=== PATIENT | female | born 1950 ===

== ENCOUNTER 2018-05-02 22:35 | Observation (INO) | payer MEDICARE ==
[2018-05-02] MEDS ORDERED: Sodium Chloride 0.9% 1,000 ML IV STA (23:08)
--- NOTE | 2018-05-02 23:11 | ED PDOC ---
HPI: Chest Pain Time Seen by Provider: 05/02/18 22:53 Chief Complaint (Nursing): Chest Pain Chief Complaint (Provider): Chest pain History Per: Patient History/Exam Limitations: no limitations Onset/Duration Of Symptoms: Days (today) Current Symptoms Are (Timing): Gone Now Additional Complaint(s): Pt. with chest pain and palpitations. Got light-headed at the same time. No numbness, tingles, weakness, headaches. No fever. No calf pain, long distance travel. No hormone tx. Took her DM meds and htn meds and felt better. No pain currently. Past Medical History Reviewed: Nursing Documentation, Vital Signs Vital Signs: Last Vital Signs Temp 98.5 F 05/02/18 22:45 Pulse 104 H 05/02/18 22:45 Resp 16 05/02/18 22:45 BP 180/91 H 05/02/18 22:45 Pulse Ox 98 05/02/18 22:45 - Medical History PMH: Diabetes, HTN, Hypercholesterolemia - Surgical History Surgical History: No Surg Hx - Family History Family History: States: Unknown Family Hx - Living Arrangements Living Arrangements: With Family - Allergies Allergies/Adverse Reactions: Allergies Allergy/AdvReac Type Severity Reaction Status Date / Time No Known Allergies Allergy Verified 05/02/18 22:47 Review of Systems ROS Statement: Except As Marked, All Systems Reviewed And Found Negative Cardiovascular: Positive for: Chest Pain, Light Headedness Neurological: Positive for: Dizziness Physical Exam - Reviewed Nursing Documentation Reviewed: Yes Vital Signs Reviewed: Yes - Physical Exam Appears: Positive for: Non-toxic, No Acute Distress Head Exam: Positive for: ATRAUMATIC, NORMAL INSPECTION, NORMOCEPHALIC Skin: Positive for: Normal Color, Warm, DRY Eye Exam: Positive for: EOMI, Normal appearance, PERRL ENT: Positive for: Normal ENT Inspection Neck: Positive for: Normal, Painless ROM Cardiovascular/Chest: Positive for: Regular Rate, Rhythm. Negative for: Chest Non Tender, Edema Respiratory: Positive for: CNT, Normal Breath Sounds Gastrointestinal/Abdominal: Positive for: Normal Exam, Soft. Negative for: Tenderness Back: Positive for: Normal Inspection. Negative for: L CVA Tenderness, R CVA Tenderness Extremity: Positive for: Normal ROM. Negative for: Tenderness Neurologic/Psych: Positive for: Alert, animal feeder II-XII, Oriented. Negative for: Motor/Sensory Deficits, Aphasia, Facial Droop - ECG ECG: Positive for: Interpreted By Me, Viewed By Me ECG Rhythm: Positive for: Normal QRS, Normal ST Segment, Sinus Rhythm O2 Sat by Pulse Oximetry: 98 Pulse Ox Interpretation: Normal - Progress ED Course And Treament: 2311: Stable. Spoke with Dr. Celaya. Will admit. Pain free. Disposition - Clinical Impression Clinical Impression: Chest pain - Patient ED Disposition Is Patient to be Admitted: Yes Counseled Patient/Family Regarding: Studies Performed, Diagnosis - Disposition Disposition Time: 23:12 Condition: FAIR - Pt Status Changed To: Hospital Disposition Of: Observation - POA Present On Arrival: None
[2018-05-02 23:23] LABS: BASO # 0.1 K/uL (0.0-0.2); EOS # 0.2 K/uL (0.0-0.7); EOS % 2.7 % (0.0-4.0); HEMOGLOBIN 13.4 g/dL (12.0-16.0); LYMPH # 2.9 K/uL (1.0-4.3); LYMPH % 36.7 % (20.0-40.0); MEAN CELL VOLUME 87.8 fl (81.0-99.0); MEAN CORPUSCULAR HEMOGLOBIN 30.1 pg (27.0-31.0); MEAN CORPUSCULAR HGB CONC 34.2 g/dL (33.0-37.0); MEAN PLATELET VOLUME 7.6 fl (7.2-11.7); MONO # 0.5 K/uL (0.0-0.8); NEUT # 4.1 K/uL (1.8-7.0); NEUT % 52.6 % (50.0-75.0); RBC 4.47 Mil/uL (3.80-5.20); RED CELL DISTRIBUTION WIDTH 13.7 % (11.5-14.5); WHITE BLOOD COUNT 7.8 K/uL (4.8-10.8)
[2018-05-02 23:30] LABS: PROTHROMBIN TIME 11.2 Seconds (9.8-13.1)
[2018-05-02 23:32] LABS: PARTIAL THROMBOPLASTIN TIME 33.1 Seconds (25.6-37.1)
[2018-05-02 23:33] LABS: ALB/GLOB RATIO 1.1 (1.0-2.1); ALBUMIN 4.3 g/dL (3.5-5.0); ALT/SGPT 23 U/L (9-52); AST/SGOT 23 U/L (14-36); BLOOD UREA NITROGEN 21 mg/dl (7-17); CALCIUM 9.6 mg/dL (8.4-10.2); GFR NON-AFRICAN AMERICAN > 60
--- NOTE | 2018-05-03 06:53 | CP.PCM.HP ---
<Mar Harris - Last Filed: 05/03/18 08:27> History of Present Illness - History of Present Illness History of Present Illness: HPI: 67 YO Female with PMHx of Diabetes, HTN, Hypercholesterolemia, colon CA presented to [facility] ED for chest pain. Per patient, chest pain is pressure like in nature, located in the mediastinum, no radiation of the pain, no exacerbating factors or alleviating factors. Chest pain is associated with palpitations, and fatigue feeling. Pain has occurred in the past but usually happens at night. Not associated with activity, able to walk 6 blocks without discomfort. Pain lasted from 15-20 mins and then resolved. PMHx: Diabetes, HTN, Hypercholesterolemia, colon CA (2013) SurgHx: cholesectomy, colon resection (2012), colonoscopy (2 yrs ago normal) FHx: DM, colon CA and breast CA SHx: Denies ETOH, smoking and illicit drug use, lives with family Allergies: NKDA Present on Admission - Present on Admission Any Indicators Present on Admission: No Review of Systems - Constitutional Constitutional: absent: Chills, Fever - Cardiovascular Cardiovascular: absent: Chest Pain Past Patient History - Past Medical History & Family History Past Medical History?: Yes - Past Social History Smoking Status: Never Smoked - CARDIAC Hx Cardiac Disorders: Yes Hx Hypercholesterolemia: Yes Hx Hypertension: Yes - PULMONARY Hx Respiratory Disorders: No - NEUROLOGICAL Hx Neurological Disorder: No - HEENT Hx HEENT Problems: No - RENAL Hx Chronic Kidney Disease: No - ENDOCRINE/METABOLIC Hx Endocrine Disorders: Yes Hx Diabetes Mellitus Type 2: Yes - HEMATOLOGICAL/ONCOLOGICAL Hx Blood Disorders: No - INTEGUMENTARY Hx Dermatological Problems: No - MUSCULOSKELETAL/RHEUMATOLOGICAL Hx Musculoskeletal Disorders: No - GASTROINTESTINAL Hx Gastrointestinal Disorders: No - GENITOURINARY/GYNECOLOGICAL Hx Genitourinary Disorders: No - PSYCHIATRIC Hx Psychophysiologic Disorder: No Hx Substance Use: No - SURGICAL HISTORY Hx Surgeries: No - ANESTHESIA Hx Anesthesia: No Meds Allergies/Adverse Reactions: Allergies Allergy/AdvReac Type Severity Reaction Status Date / Time No Known Allergies Allergy Verified 05/02/18 22:47 Physical Exam - Constitutional Appears: No Acute Distress, Younger Than Stated Age - Head Exam Head Exam: NORMAL INSPECTION - Eye Exam Eye Exam: Normal appearance - ENT Exam ENT Exam: Mucous Membranes Moist - Respiratory Exam Respiratory Exam: Clear to Auscultation Bilateral, NORMAL BREATHING PATTERN. absent: Wheezes - Cardiovascular Exam Cardiovascular Exam: REGULAR RHYTHM, +S1, +S2 - GI/Abdominal Exam GI & Abdominal Exam: Normal Bowel Sounds, Soft. absent: Tenderness Additional comments: old ex lap scar, well healed - Extremities Exam Extremities exam: Positive for: normal inspection. Negative for: calf tende rness, pedal edema - Neurological Exam Neurological exam: Alert Results - Vital Signs Recent Vital Signs: Last Vital Signs Temp 98 F 05/03/18 03:30 Pulse 84 05/03/18 03:30 Resp 19 05/03/18 03:30 BP 154/81 H 05/03/18 03:30 Pulse Ox 97 05/03/18 03:30 - Labs Result Diagrams: 05/02/18 23:14 05/02/18 23:14 Labs: Laboratory Results - last 24 hr 05/02/18 05/02/18 05/02/18 23:14 23:14 23:14 WBC 7.8 RBC 4.47 Hgb 13.4 Hct 39.3 MCV 87.8 MCH 30.1 MCHC 34.2 RDW 13.7 Plt Count 262 MPV 7.6 Neut % (Auto) 52.6 Lymph % (Auto) 36.7 Yell % (Auto) 7.0 Eos % (Auto) 2.7 Baso % (Auto) 1.0 Neut # (Auto) 4.1 Lymph # (Auto) 2.9 Yell # (Auto) 0.5 Eos # (Auto) 0.2 Baso # (Auto) 0.1 PT 11.2 INR 1.0 APTT 33.1 Sodium 137 Potassium 4.1 Chloride 97 L Carbon Dioxide 27 Anion Gap 17 BUN 21 H Creatinine 0.9 Est GFR ( Amer) > 60 Est GFR (Non-Af Amer) > 60 POC Glucose (mg/dL) Random Glucose 284 H Calcium 9.6 Total Bilirubin 0.2 AST 23 ALT 23 Alkaline Phosphatase 87 Troponin I < 0.0120 Total Protein 8.1 Albumin 4.3 Globulin 3.8 Albumin/Globulin Ratio 1.1 05/03/18 05:33 WBC RBC Hgb Hct MCV MCH MCHC RDW Plt Count MPV Neut % (Auto) Lymph % (Auto) Yell % (Auto) Eos % (Auto) Baso % (Auto) Neut # (Auto) Lymph # (Auto) Yell # (Auto) Eos # (Auto) Baso # (Auto) PT INR APTT Sodium Potassium Chloride Carbon Dioxide Anion Gap BUN Creatinine Est GFR ( Amer) Est GFR (Non-Af Amer) POC Glucose (mg/dL) 125 H Random Glucose Calcium Total Bilirubin AST ALT Alkaline Phosphatase Troponin I Total Protein Albumin Globulin Albumin/Globulin Ratio Assessment & Plan (1) Hypertension Status: Chronic (2) Diabetes Status: Chronic (3) Chest pain Status: Acute - Assessment and Plan (Free Text) Assessment: Assessment/Plan: 67 YO Female with PMHx of Diabetes, HTN, Hypercholesterolemia, and colon CA (2012) is admitted for chest pain. Chest pain -atypical -EKG no acute ST or T wave changed noted -trop x 1 neg -cardiology consulted, follow up recs -echo pending HTN/NIDDM -chronic, controlled -c/w home meds Colon CA -s/p resection -remission Will d/c patient home if asymptomatic, neg trops and cleared by cardiology Plan as ordered <Gualberto Celaya - Last Filed: 05/04/18 11:49> Results - Vital Signs Recent Vital Signs: Last Vital Signs Temp 97.8 F 05/03/18 16:12 Pulse 77 05/03/18 16:12 Resp 17 05/03/18 16:12 BP 169/82 H 05/03/18 17:02 Pulse Ox 96 05/03/18 16:12 - Labs Result Diagrams: 05/03/18 08:08 05/03/18 08:08 Labs: Laboratory Results - last 24 hr 05/03/18 05/03/18 05/03/18 08:13 16:12 16:52 POC Glucose (mg/dL) 101 Troponin I 0.0130 25-OH Vitamin D Total < 12.8 L Assessment & Plan - Assessment and Plan (Free Text) Assessment: Patient was personally seen and examined by me in rounds with residents. Available labs and diagnostic data reviewed. Case, Patient's condition and management plan discussed with residents in rounds. Agree with resident's progress note. Plan: As ordered.
[2018-05-03] MEDS: Insulin Lispro (humaLOG) 100 Units/ml Inj SC SCH ×3 (06:58→17:03)
[2018-05-03 07:58] VITALS: PULSE 77
[2018-05-03 08:32] LABS: HEMOGLOBIN 12.3 g/dL (12.0-16.0); MEAN CELL VOLUME 90.9 fl (81.0-99.0); MEAN CORPUSCULAR HEMOGLOBIN 29.8 pg (27.0-31.0); MEAN CORPUSCULAR HGB CONC 32.8 g/dL (33.0-37.0); RBC 4.11 Mil/uL (3.80-5.20); RED CELL DISTRIBUTION WIDTH 13.6 % (11.5-14.5); WHITE BLOOD COUNT 8.1 K/uL (4.8-10.8)
[2018-05-03 08:41] LABS: BLOOD UREA NITROGEN 23 mg/dl (7-17); CALCIUM 9.3 mg/dL (8.4-10.2); GFR NON-AFRICAN AMERICAN > 60; HDL CHOLESTEROL 48 MG/DL (30-70)
--- NOTE | 2018-05-03 08:42 | RAD ---
Date of service: 05/02/2018 HISTORY: chest pain COMPARISON: No prior. FINDINGS: LUNGS: No active pulmonary disease. PLEURA: No significant pleural effusion identified, no pneumothorax apparent. CARDIOVASCULAR: No aortic atherosclerotic calcification present. Normal cardiac size. Cardiomegaly OSSEOUS STRUCTURES: No significant abnormalities. VISUALIZED UPPER ABDOMEN: Normal. OTHER FINDINGS: None. IMPRESSION: No acute pulmonary pathology appreciated. Cardiomegaly
[2018-05-03 08:52] LABS: LDL CHOLESTEROL 89 mg/dL (0-129)
[2018-05-03] MEDS ORDERED: Enoxaparin 40 mg Syringe SC SCH (09:00)
[2018-05-03] MEDS ORDERED: HCTZ/Losartan 12.5/50 Tab PO SCH (09:00)
--- NOTE | 2018-05-03 11:10 | CARD ---
APPROVED REPORT Date of service: 05/02/2018 EKG Measurement Heart [id number] PA [id number] <Conclusion> Sinus tachycardia Otherwise normal ECG
--- NOTE | 2018-05-03 12:13 | CARD ---
APPROVED REPORT Date of service: 05/03/2018 EXAM: Two-dimensional and M-mode echocardiogram with Doppler and color Doppler. Other Information Quality : GoodRhythm : NSR INDICATION Chest Pain 2D DIMENSIONS IVSd1.26 (0.7-1.1cm)LVDd4.20 (3.9-5.9cm) LVOT Diameter1.67 (1.8-2.4cm)PWd1.14 (0.7-1.1cm) IVSs1.34 (0.8-1.2cm)LVDs2.45 (2.5-4.0cm) FS (%) 41.7 %PWs1.41 (0.8-1.2cm) M-Mode DIMENSIONS Left Atrium (MM)3.75 (2.5-4.0cm)IVSd1.38 (0.7-1.1cm) Aortic Root2.92 (2.2-3.7cm)LVDd4.52 (4.0-5.6cm) Aortic Cusp Exc.1.88 (1.5-2.0cm)PWd1.19 (0.7-1.1cm) IVSs1.93 cmFS (%) 60 % LVDs1.82 (2.0-3.8cm)PWs1.88 cm Aortic Valve AoV Peak Cbcwjqix786.6cm/sAoV VTI34.8cmAO Peak GR.12mmHg LVOT Peak Bvoddzwv221.3cm/sLVOT VTI29.06cmAO Mean GR.7mmHg PIA (VMAX)0.48dt2HHE (VTI)0.99cm2 Mitral Valve MV E Yzxfwkas07.4cm/sMV DECEL [id number] A Pnjxtxxs97.8cm/s MV WRV12fpA/A ratio0.8MVA (PHT)2.60cm2 TDI Lateral E' Peak V9.53cm/sMedial E' Peak V5.62cm/sE/Lateral E'8.6 E/Medial E'14.7 Tricuspid Valve TR Peak Rxlfvxws572ke/sRAP ODTGPYBX65fzWlDP Peak Gr.21mmHg HEVQ18qxVz LEFT VENTRICLE The left ventricle is normal size. There is borderline to mild concentric left ventricular hypertrophy. The left ventricular systolic function is normal. The estimated ejection fraction is 60-65% No regional wall motion abnormalities noted.. Transmitral Doppler flow pattern is Grade I-abnormal relaxation pattern. No left ventricle thrombus noted on this study. There is no ventricular septal defect visualized. There is no left ventricular aneurysm. There is no mass noted in the left ventricle. RIGHT VENTRICLE The right ventricle is normal size. There is normal right ventricular wall thickness. The right ventricular systolic function is normal. ATRIA The left atrium is borderline dilated. The right atrium size is normal. The interatrial septum is intact with no evidence for an atrial septal defect. AORTIC VALVE The aortic valve is normal in structure. No aortic regurgitation is present. There is no aortic valvular stenosis. There is no aortic valvular vegetation. MITRAL VALVE The mitral valve is normal in structure. There is no evidence of mitral valve prolapse. There is no mitral valve stenosis. There is no mitral valve regurgitation noted. TRICUSPID VALVE The tricuspid valve is normal in structure. There is trace to mild tricuspid valve regurgitation noted. RVSP is calculated at 25 mm Hg. There is no tricuspid valve prolapse or vegetation. There is no tricuspid valve stenosis. PULMONIC VALVE The pulmonary valve is normal in structure. There is no pulmonic valvular regurgitation. There is no pulmonic valvular stenosis. GREAT VESSELS The aortic root is normal in size. The ascending aorta is normal in size. The pulmonary artery is normal. The IVC is normal in size and collapses >50% with inspiration. PERICARDIAL EFFUSION There is no pericardial effusion. There is no pleural effusion. <Conclusion> There is borderline to mild concentric left ventricular hypertrophy. The estimated ejection fraction is 60-65% Transmitral Doppler flow pattern is Grade I-abnormal relaxation pattern. The left atrium is borderline dilated. There is trace to mild tricuspid valve regurgitation noted. RVSP is calculated at 25 mm Hg. The IVC is normal in size and collapses >50% with inspiration.
[2018-05-03 16:13] VITALS: BP 169/82; RESP 17; TEMP 97.8; O2SAT 96
--- NOTE | 2018-05-03 19:11 | CP.PCM.CON ---
History of Present Illness - History of Present Illness History of Present Illness: 67-year-old female with past medical history significant for hypertension diabetes mellitus hyperlipidemia who follows with Dr. Miles as outpatient presented with complaints of chest pain substernal pressure-like sensation she was ruled out for ACS with serial cardiac enzymes x3 EKG showed normal sinus rhythm with no acute ST or T wave changes she subsequently underwent an echocardiogram which showed normal ejection fraction. Patient was offered to undergo a stress test but would rather we discharged home [facility] and to be scheduled for medical visit on Tuesday to be scheduling for a car outpatient stress test. Review of Systems - Review of Systems Systems not reviewed;Unavailable: Acuity of Condition - Constitutional Constitutional: As Per HPI - EENT Eyes: As Per HPI Ears: As Per HPI Nose/Mouth/Throat: As Per HPI - Breasts Breasts: As Per HPI - Cardiovascular Cardiovascular: As Per HPI - Respiratory Respiratory: As Per HPI - Gastrointestinal Gastrointestinal: As Per HPI - Genitourinary Genitourinary: As Per HPI - Reproductive: Female Reproductive:Female: As Per HPI - Menstruation Menstruation: As Per HPI - Musculoskeletal Musculoskeletal: As Per HPI - Integumentary Integumentary: As Per HPI - Neurological Neurological: As Per HPI - Psychiatric Psychiatric: As Per HPI - Endocrine Endocrine: As Per HPI - Hematologic/Lymphatic Hematologic: As Per HPI Past Patient History - Past Medical History & Family History Past Medical History?: Yes - Past Social History Smoking Status: Never Smoked - CARDIAC Hx Cardiac Disorders: Yes Hx Hypercholesterolemia: Yes Hx Hypertension: Yes - PULMONARY Hx Respiratory Disorders: No - NEUROLOGICAL Hx Neurological Disorder: No - HEENT Hx HEENT Problems: No - RENAL Hx Chronic Kidney Disease: No - ENDOCRINE/METABOLIC Hx Endocrine Disorders: Yes Hx Diabetes Mellitus Type 2: Yes - HEMATOLOGICAL/ONCOLOGICAL Hx Blood Disorders: No - INTEGUMENTARY Hx Dermatological Problems: No - MUSCULOSKELETAL/RHEUMATOLOGICAL Hx Musculoskeletal Disorders: No - GASTROINTESTINAL Hx Gastrointestinal Disorders: No - GENITOURINARY/GYNECOLOGICAL Hx Genitourinary Disorders: No - PSYCHIATRIC Hx Psychophysiologic Disorder: No Hx Substance Use: No - SURGICAL HISTORY Hx Surgeries: No - ANESTHESIA Hx Anesthesia: No Meds Home Medications: Home Medication List Medication Instructions Recorded Confirmed Type Aspirin 81 mg PO DAILY 90 Days [email or web address] 05/03/18 Rx Aspirin [Adult Aspirin] 81 mg PO DAILY #90 tablet. 05/03/18 Rx Atorvastatin [Lipitor] 10 mg PO DIN #90 tab 05/03/18 Rx Allergies/Adverse Reactions: Allergies Allergy/AdvReac Type Severity Reaction Status Date / Time No Known Allergies Allergy Verified 05/02/18 22:47 - Medications Medications: Current Medications Acetaminophen (Tylenol 325mg Tab) 650 mg PO Q6 PRN PRN Reason: Pain, Mild (1-3) Carvedilol (Coreg) 6.25 mg PO BID [facility] Last Admin: 05/03/18 17:02 Dose: 6.25 mg Enoxaparin Sodium (Lovenox) 40 mg SC DAILY [facility]; Protocol Last Admin: 05/03/18 08:54 Dose: 40 mg HCTZ/Losartan Potassium (Hyzaar 12.5 Mg-50 Mg) 1 tab PO DAILY [facility] Last Admin: 05/03/18 08:53 Dose: 1 tab Insulin Human Lispro (Humalog) 0 units SC ACHS [facility]; Protocol Last Admin: 05/03/18 17:03 Dose: Not Given Metformin HCl (Glucophage) 1,000 mg PO BID [facility] Last Admin: 05/03/18 17:03 Dose: Not Given Repaglinide (Prandin) 2 mg PO TID [facility] Last Admin: 05/03/18 17:04 Dose: Not Given Physical Exam - Constitutional Appears: Well - Head Exam Head Exam: ATRAUMATIC, NORMAL INSPECTION, NORMOCEPHALIC - Eye Exam Eye Exam: EOMI, Normal appearance, PERRL Pupil Exam: NORMAL ACCOMODATION, PERRL - ENT Exam ENT Exam: Mucous Membranes Moist, Normal Exam - Neck Exam Neck exam: Positive for: Normal Inspection - Respiratory Exam Respiratory Exam: Clear to Auscultation Bilateral, NORMAL BREATHING PATTERN - Cardiovascular Exam Cardiovascular Exam: REGULAR RHYTHM - GI/Abdominal Exam GI & Abdominal Exam: Normal Bowel Sounds, Soft. absent: Tenderness - Extremities Exam Extremities exam: Positive for: normal inspection - Back Exam Back exam: NORMAL INSPECTION - Neurological Exam Neurological exam: Alert, CN II-XII Intact, Normal Gait, Oriented x3, Reflexes Normal - Psychiatric Exam Psychiatric exam: Normal Affect, Normal Mood - Skin Skin Exam: Dry, Intact, Normal Color, Warm Results - Vital Signs Recent Vital Signs: Last Vital Signs Temp 97.8 F 05/03/18 16:12 Pulse 77 05/03/18 16:12 Resp 17 05/03/18 16:12 BP 169/82 H 05/03/18 17:02 Pulse Ox 96 05/03/18 16:12 - Labs Result Diagrams: 05/03/18 08:08 05/03/18 08:08 Labs: Laboratory Results - last 24 hr 05/02/18 05/02/18 05/02/18 23:14 23:14 23:14 WBC 7.8 RBC 4.47 Hgb 13.4 Hct 39.3 MCV 87.8 MCH 30.1 MCHC 34.2 RDW 13.7 Plt Count 262 MPV 7.6 Neut % (Auto) 52.6 Lymph % (Auto) 36.7 Lamar % (Auto) 7.0 Eos % (Auto) 2.7 Baso % (Auto) 1.0 Neut # (Auto) 4.1 Lymph # (Auto) 2.9 Lamar # (Auto) 0.5 Eos # (Auto) 0.2 Baso # (Auto) 0.1 PT 11.2 INR 1.0 APTT 33.1 Sodium 137 Potassium 4.1 Chloride 97 L Carbon Dioxide 27 Anion Gap 17 BUN 21 H Creatinine 0.9 Est GFR ( Amer) > 60 Est GFR (Non-Af Amer) > 60 POC Glucose (mg/dL) Random Glucose 284 H Calcium 9.6 Total Bilirubin 0.2 AST 23 ALT 23 Alkaline Phosphatase 87 Troponin I < 0.0120 Total Protein 8.1 Albumin 4.3 Globulin 3.8 Albumin/Globulin Ratio 1.1 Triglycerides Cholesterol LDL Cholesterol Direct HDL Cholesterol Vitamin B12 25-OH Vitamin D Total TSH 3rd Generation 05/03/18 05/03/18 05/03/18 05:33 08:08 08:08 WBC 8.1 RBC 4.11 Hgb 12.3 Hct 37.4 MCV 90.9 D MCH 29.8 MCHC 32.8 L RDW 13.6 Plt Count 268 MPV Neut % (Auto) Lymph % (Auto) Lamar % (Auto) Eos % (Auto) Baso % (Auto) Neut # (Auto) Lymph # (Auto) Lamar # (Auto) Eos # (Auto) Baso # (Auto) PT INR APTT Sodium 140 Potassium 4.1 Chloride 99 Carbon Dioxide 28 Anion Gap 17 BUN 23 H Creatinine 0.7 Est GFR ( Amer) > 60 Est GFR (Non-Af Amer) > 60 POC Glucose (mg/dL) 125 H Random Glucose 108 H Calcium 9.3 Total Bilirubin AST ALT Alkaline Phosphatase Troponin I 0.0240 Total Protein Albumin Globulin Albumin/Globulin Ratio Triglycerides 154 H Cholesterol 168 LDL Cholesterol Direct 89 HDL Cholesterol 48 Vitamin B12 226 L 25-OH Vitamin D Total TSH 3rd Generation 1.69 05/03/18 05/03/18 05/03/18 08:13 16:12 16:52 WBC RBC Hgb Hct MCV MCH MCHC RDW Plt Count MPV Neut % (Auto) Lymph % (Auto) Lamar % (Auto) Eos % (Auto) Baso % (Auto) Neut # (Auto) Lymph # (Auto) Lamar # (Auto) Eos # (Auto) Baso # (Auto) PT INR APTT Sodium Potassium Chloride Carbon Dioxide Anion Gap BUN Creatinine Est GFR ( Amer) Est GFR (Non-Af Amer) POC Glucose (mg/dL) 101 Random Glucose Calcium Total Bilirubin AST ALT Alkaline Phosphatase Troponin I 0.0130 Total Protein Albumin Globulin Albumin/Globulin Ratio Triglycerides Cholesterol LDL Cholesterol Direct HDL Cholesterol Vitamin B12 25-OH Vitamin D Total < 12.8 L TSH 3rd Generation Assessment & Plan (1) Chest pain Assessment and Plan: ACS ruled out echo normal EF plan for outpt stress test f/u in [place] office on Tuesday add asa and lipitor Status: Acute (2) Diabetes Status: Chronic (3) Hypertension Assessment and Plan: cont coreg and losartan/hctz Status: Chronic
== END 2018-05-03 19:20 | disposition home or self-care (01) ==
LOC: H.ER 22:35 → EDBD 22:35 → H.ERHOLD 23:12 → H.TEL 05-03 03:20
PROVIDERS: ADMIT Internal Medicine; ATTEND Internal Medicine
DX: R07.89 Other chest pain (principal); E11.9 Type 2 diabetes mellitus without complications; I10 Essential (primary) hypertension; E78.00 Pure hypercholesterolemia, unspecified; Z85.038 Personal history of other malignant neoplasm of large intestine
CPT/HCPCS: 36415; 71045; 80048; 80053; 80061; 82306; 82607; 82948; 83036; 84443; 84484; 85025; 85027; 85610; 85730; 93005; 93306; 96372; 99285; G0378; J1650; J7030